=== PATIENT | male | born 1965 | race Caucasian/White ===

== ENCOUNTER 2017-04-21 12:26 | Emergency (ER) | payer BC ==
[2017-04-21] MEDS ORDERED: LIDOCAINE 1%-EPI 1:100000 20 ML MDV ONE (13:03)
[2017-04-21] MEDS ORDERED: TETANUS/DIPHTHERIA/PERTUSSIS 0.5 ML SYRINGE IM ONE ×2 (13:03→13:06)
--- NOTE | 2017-04-21 14:12 | ED Physician Documentation ---
PD HPI LOWER EXT INJURY - Stated complaint Stated Complaint: LEFT LEG LAC - Chief complaint Chief Complaint: Laceration - History obtained from History obtained from: Patient - History of Present Illness PD HPI LOW EXT INJURY LOCATION: Left, Lower leg Type of injury: Laceration Where injury occurred: Home Timing - onset: How many hours ago (1) Associated symptoms: No: Weakness, Numbness Similar symptoms before: Has not had sx before Recently seen: Clinic (Sent here from clinic.) - Additional information Additional information: The patient is a 52-year-old male who was sent to the emergency department from clinic with a laceration in his left anterior tibial region. The patient was lifting a piece of glass that was cracked, and it fell with the broken edge impacting his left anterior tibial region. He presents with 2 parallel lacerations. He denies any other injuries. He is uncertain of his tetanus status. Review of Systems Constitutional: denies: Fever Skin: reports: Laceration (s) Musculoskeletal: denies: Back pain, Joint pain, Extremity swelling Neurologic: denies: Focal weakness, Numbness PD PAST MEDICAL HISTORY - Past Medical History Past Medical History: No Cardiovascular: None Respiratory: None Neuro: None Endocrine/Autoimmune: None - Past Surgical History Past Surgical History: No - Present Medications Home Medications: Ambulatory Orders Medication Instructions Recorded Confirmed No Known Home Medications [No 04/21/17 04/21/17 Known Home Medications] - Allergies Allergies/Adverse Reactions: Allergies Allergy/AdvReac Type Severity Reaction Status Date / Time No Known Drug Allergies Allergy Verified 04/21/17 12:35 - Social History Does the pt smoke?: No Smoking Status: Never smoker Does the pt drink ETOH?: Yes ETOH Use: Beer Does the pt have substance abuse?: No - Immunizations Immunizations are current?: No Immunizations: TDAP >10years/unknown PD ED PE NORMAL - Vitals Vital signs reviewed: Yes (Normal) - General General: Alert and oriented X 3, Well developed/nourished - HEENT HEENT: Atraumatic - Respiratory Respiratory: No respiratory distress - Derm Derm: No rash - Extremities Extremities: No edema, No calf tenderness / cord, Other (There is a 2 cm laceration and a 1.5 cm laceration on the anterior aspect of the left mid tibial region. Exploration of the wound reveals no foreign body. Distal neurovascular is intact.) - Neuro Neuro: Alert and oriented X 3, No motor deficit, No sensory deficit, Normal speech Results - Vitals Vitals: Oxygen O2 Source Room air - Rads (name of study) Left tib/fib Radiology: Prelim report reviewed, EMP read contemporaneously, See rad report ( No appreciable radiopaque foreign body or soft tissue gas identified.) Procedures - Laceration (location) left lower leg Length in cm: 1.5 Wound type: Linear, Into subcut fat Neurovascular status: Sensory intact, Motor intact, Vascular intact Tendon involvement: Tendon intact Anesthesia: Lidocaine 1% with epi Wound Preparation: Hibiclens Skin layer closure: Nylon, Interrupted, Size #-0 - enter number (5), Sutures - enter # (5) Other: Patient tolerated well, No complications, Neurovascular intact, Tetanus booster given Complexity: Simple left pretibial region Length in cm: 2 Wound type: Linear, Into subcut fat, Clean Neurovascular status: Sensory intact, Motor intact, Vascular intact Tendon involvement: Tendon intact Anesthesia: Lidocaine 1% with epi Wound Preparation: Hibiclens Skin layer closure: Nylon, Interrupted, Size #-0 - enter number (5), Sutures - enter # (5) Other: Patient tolerated well, No complications, Neurovascular intact, Dressing applied, Tetanus booster given Complexity: Simple PD MEDICAL DECISION MAKING - ED course Complexity details: reviewed results, re-evaluated patient, considered differential, d/w patient, d/w family ED course: The patient's presentation is significant for 2 linear lacerations on the anterior tibial region of the left leg. No foreign bodies were detected on physical examination of the wounds, or by x-ray examination. After instilling local anesthetic and thoroughly cleaning the wounds, they were repaired with 5- 0 nylon simple sutures. Antibiotic ointment and gauze dressings were applied. Tetanus booster was administered. I discussed with the patient and his family the expected course of healing, timing for suture removal, as well as potentially worrisome signs or symptoms that should prompt reevaluation in the emergency department. Departure - Departure Disposition: 01 Home, Self Care Clinical Impression: Leg laceration Qualifiers: Encounter type: initial encounter Laterality: left Qualified Code(s): S81.812A - Laceration without foreign body, left lower leg, initial encounter Condition: Stable Instructions: ED Laceration Ext Sutr Stap Tape Follow-Up: YURY CURRY MD [Physician No Access] - Comments: Keep the wound clean, and apply antibiotic ointment daily. Keep your left leg elevated as much the time as possible. You can use ibuprofen, up to 800 mg 3 times daily if needed for pain. Followup for suture removal in about 12 days. Return to the emergency department if you develop any sign of infection, or otherwise worsening symptoms. Discharge Date/Time: 04/21/17 14:29
--- NOTE | 2017-04-21 14:13 | XRAY Preliminary Report ---
Exam: XR Tib/Fib LT IMPRESSION: 1. No appreciable radiopaque foreign body or soft tissue gas identified. [facility] SITE ID: [id number]
--- NOTE | 2017-04-21 14:16 | XRAY Report ---
EXAM: LEFT TIBIA/FIBULA RADIOGRAPHY EXAM DATE: 04/21/2017 01:50 PM. CLINICAL HISTORY: Glass cut left pretibial region, ?foreign body. COMPARISON: None. TECHNIQUE: AP and lateral views. FINDINGS: Medial jake in the distal femur and proximal tibia consistent with medial collateral ligament lenin nstruction. Patellofemoral marginal osteophyte formation. Lateral compartment marginal osteophyte for mation. No acute fracture. Ankle mortise intact. No significant left knee joint effusion. 2 punctate rounded calcifications over the mid and lower medial aspect of the left lower leg possibly tiny phleb oliths. Otherwise no evidence of radiopaque foreign body. No obvious soft tissue gas. IMPRESSION: 1. No appreciable radiopaque foreign body or soft tissue gas identified. [facility] Referring Provider Line: [phone] SITE ID: [id number]
[2017-04-21 14:22] VITALS: BP 127/59
== END 2017-04-21 14:29 | disposition home or self-care (01) ==
LOC: ED 12:26
DX: S81.812A Laceration without foreign body, left lower leg, initial encounter (principal); W25.XXXA Contact with sharp glass, initial encounter; Z23 Encounter for immunization
CPT/HCPCS: 12002; 90471; 99283

== ENCOUNTER 2018-10-01 08:14 | Outpatient (CLI) | payer BC ==
[2018-10-01 11:06] LABS: ALBUMIN 4.4 g/dL (3.2-5.5); ALBUMIN/GLOBULIN RATIO 1.6 (1.0-2.2); ALKALINE PHOSPHATASE 56 IU/L (42-121); ALT ALANINE AMINOTRANSFERASE 26 IU/L (10-60); AST ASPARTATE AMINOTRANSFERASE 29 IU/L (10-42); BILIRUBIN,TOTAL 1.9 mg/dL (0.2-1.0); BUN - BLOOD UREA NITROGEN 16 mg/dL (6-20); CALCIUM 8.8 mg/dL (8.5-10.3); CARBON DIOXIDE - CO2 31 mmol/L (21-32); CHLORIDE 102 mmol/L (101-111); CHOL/HDL RATIO 2.6 (<5.0); CHOLESTEROL 187 mg/dL; CREATININE 0.9 mg/dL (0.6-1.2); GFR - MDRD 89 (>89); GLUCOSE 97 mg/dL (70-100); HDL CHOLESTEROL 71 mg/dL; LDL CHOLESTEROL,CALCULATED 100 mg/dL; LDL/HDL RATIO 1.4 (<3.6); SODIUM 136 mmol/L (135-145); TOTAL PROTEIN 7.1 g/dL (6.7-8.2); VLDL CHOLESTEROL 16 mg/dL
== END 2018-10-01 08:15 | disposition home or self-care (01) ==
LOC: LAB.F 08:14
PROVIDERS: ATTEND Internal Medicine
DX: Z00.00 Encounter for general adult medical examination without abnormal findings (principal)
CPT/HCPCS: 36415; 80053; 80061; 83721

== ENCOUNTER 2023-09-27 07:10 | Outpatient (CLI) | payer OTHER ==
[2023-09-27 14:45] LABS: BASOPHILS # (AUTO) 0.1 10^3/uL (0.0-0.1); BASOPHILS % (AUTO) 1.4 %; EOSINOPHILS # (AUTO) 0.2 10^3/uL (0.0-0.7); EOSINOPHILS % (AUTO) 3.7 %; HCT - HEMATOCRIT 43.6 % (42.0-52.0); HGB - HEMOGLOBIN 13.5 g/dL (14.0-18.0); LYMPHOCYTES # (AUTO) 0.8 10^3/uL (1.5-3.5); LYMPHOCYTES % (AUTO) 19.1 %; MEAN CORPUSCULAR VOLUME 96.9 fL (80.0-94.0); MEAN PLATELET VOLUME 9.8 fL (7.4-11.4); MONOCYTES # (AUTO) 0.5 10^3/uL (0.0-1.0); MONOCYTES % (AUTO) 11.7 %; NEUTROPHILS # (AUTO) 2.8 10^3/uL (1.5-6.6); NEUTROPHILS % (AUTO) 63.9 %; PLT - PLATELET COUNT 239 10^3/uL (130-450); RED CELL DISTRIBUTION WIDTH 13.6 % (12.0-15.0); WHITE BLOOD COUNT 4.4 x10^3/uL (4.8-10.8)
[2023-09-27 15:26] LABS: ALBUMIN 4.5 g/dL (3.2-5.5); ALBUMIN/GLOBULIN RATIO 1.7 (1.0-2.2); ALKALINE PHOSPHATASE 56 IU/L (42-121); ALT ALANINE AMINOTRANSFERASE 18 IU/L (10-60); AST ASPARTATE AMINOTRANSFERASE 22 IU/L (10-42); BILIRUBIN,TOTAL 1.2 mg/dL (0.2-1.0); BUN - BLOOD UREA NITROGEN 21 mg/dL (6-20); CALCIUM 9.5 mg/dL (8.5-10.3); CARBON DIOXIDE - CO2 33 mmol/L (21-32); CHLORIDE 103 mmol/L (101-111); CHOL/HDL RATIO 2.9 (<5.0); CHOLESTEROL 240 mg/dL; CREATININE 0.8 mg/dL (0.6-1.3); GFR - MDRD 100 (>89); GLUCOSE 95 mg/dL (74-104); HDL CHOLESTEROL 84 mg/dL; LDL CHOLESTEROL,CALCULATED 126 mg/dL; LDL/HDL RATIO 1.5 (<3.6); POTASSIUM 5.2 mmol/L (3.5-4.5); SODIUM 138 mmol/L (135-145); TOTAL PROTEIN 7.1 g/dL (6.4-8.9); TRIGLYCERIDES 152 mg/dL (48-352); VLDL CHOLESTEROL 30 mg/dL
== END 2023-09-27 07:11 | disposition home or self-care (01) ==
LOC: LAB.S 07:10
PROVIDERS: ATTEND Nurse Practitioner Acute Care
DX: Z13.228 Encounter for screening for other metabolic disorders (principal); Z13.220 Encounter for screening for lipoid disorders; Z12.5 Encounter for screening for malignant neoplasm of prostate; Z13.0 Encounter for screening for diseases of the blood and blood-forming organs and certain disorders involving the immune mechanism
CPT/HCPCS: 36415; 80053; 80061; 83721; 84153; 85025

== ENCOUNTER 2023-10-24 08:38 | Outpatient (CLI) | payer OTHER | END 2023-10-24 08:39 | disposition home or self-care (01) | LOC: LAB.S 08:38 | PROVIDERS: ATTEND Nurse Practitioner Acute Care | DX: E87.5 Hyperkalemia (principal) | CPT/HCPCS: 36415; 84132 ==

== ENCOUNTER 2023-11-27 06:13 | Day surgery (SDC) | payer OTHER ==
[2023-11-27] MEDS ORDERED: LACTATED RINGERS 1,000 ML IV ONE ×2 (06:24→08:18)
--- NOTE | 2023-11-27 07:13 | ANESTHESIA ---
Pre-Anesthesia VS, & Labs - Diagnosis screening - Procedure colonoscopy Vital Signs: Temp Pulse Resp BP Pulse Ox O2 Flow Rate 36 C L 35 L 13 124/65 100 0 11/27/23 06:40 11/27/23 06:40 11/27/23 06:40 11/27/23 06:40 11/27/23 06:40 11/27/23 06:40 Height: 6 ft 2 in Weight (kg): 97.7 kg Body Mass Index: 27.6 BMI Classification: Overweight - NPO Other (3am water) Home Medications and Allergies No Known Home Medications 04/21/17 Allergies/Adverse Reactions: Allergies Allergy/AdvReac Type Severity Reaction Status Date / Time No Known Drug Allergies Allergy Verified 04/21/17 12:35 Anes History & Medical History - Anesthetic History Anesthesia Complications: reports: No previous complications - Medical History Cardiovascular: reports: None Pulmonary: reports: None Gastrointestinal: reports: GERD Urinary: reports: Frequency Musculoskeletal: reports: Osteoarthritis Endocrine/Autoimmune: reports: None Skin: reports: None Smoking Status: Never smoker History of Cancer?: No - Surgical History General: reports: Appendectomy Cardiothoracic: reports: Vascular surgery Orthopedic: reports: Shoulder arthroplasty, Other Exam General: Alert, Oriented x3 Dental: WNL Mouth Opening: Greater than 4 Fingerbreadths Neck Mobility: Normal Mallampati classification: III Thyromental Distance: greater than 6 cm Respiratory: Lungs clear Cardiovascular: Regular rate (sinus shen) Plan Anesthesia Type: Total IV Consent for Procedure(s) Verified and Reviewed: Yes Code Status: Attempt Resuscitation ASA classification: 1-Healthy patient Is this case an emergency?: No
[2023-11-27] MEDS ORDERED: PROPOFOL 500 MG/50 ML 500 MG/50 ML VIAL ONE (07:38)
[2023-11-27] MEDS ORDERED: GLYCOPYRROLATE 1 MG/5 ML VIAL ONE (07:39)
[2023-11-27 08:38] VITALS: O2SAT 100
[2023-11-27 08:48] VITALS: BP 110/80
--- NOTE | 2023-11-27 10:07 | ANESTHESIA POST OP EVALUATION ---
Anesthesia Post Eval - Post Anesthesia Eval Vitals: Last Vital Signs Temp 36 C L 11/27/23 08:35 Pulse 54 L 11/27/23 08:35 Resp 14 11/27/23 08:35 BP 110/80 11/27/23 08:35 Pulse Ox 100 11/27/23 08:35 O2 Flow Rate 0 11/27/23 06:40 CV Function Including HR & BP: Stable Pain Control: Satisfactory Nausea & Vomiting: Negative Mental Status: Baseline Respiratory Status: Airway Patent Hydration Status: Satisfactory Anesthesia Complications: None
== END 2023-11-27 06:14 | disposition home or self-care (01) ==
LOC: SDS 06:13
PROVIDERS: ATTEND Surgery
DX: Z12.11 Encounter for screening for malignant neoplasm of colon (principal); K64.1 Second degree hemorrhoids
CPT/HCPCS: 45378; J7120

== ENCOUNTER 2024-01-05 07:08 | Outpatient (CLI) | payer OTHER ==
[2024-01-05 14:55] LABS: ABSOLUTE RETICS # AUTO 0.047 10^6/uL (0.020-0.110); EOSINOPHILS # (AUTO) 0.2 10^3/uL (0.0-0.7); EOSINOPHILS % (AUTO) 4.2 %; HCT - HEMATOCRIT 42.4 % (42.0-52.0); HGB - HEMOGLOBIN 13.1 g/dL (14.0-18.0); LYMPHOCYTES % (AUTO) 25.3 %; MEAN CORPUSCULAR HEMOGLOBIN 28.8 pg (27.0-31.0); MEAN CORPUSCULAR HGB CONC 30.9 g/dL (32.0-36.0); MEAN CORPUSCULAR VOLUME 93.2 fL (80.0-94.0); MEAN PLATELET VOLUME 10.2 fL (7.4-11.4); MONOCYTES # (AUTO) 0.4 10^3/uL (0.0-1.0); MONOCYTES % (AUTO) 10.7 %; NEUTROPHILS # (AUTO) 2.3 10^3/uL (1.5-6.6); NEUTROPHILS % (AUTO) 58.8 %; PLT - PLATELET COUNT 251 10^3/uL (130-450); RED BLOOD COUNT 4.55 10^6/uL (4.70-6.10); RED CELL DISTRIBUTION WIDTH 14.3 % (12.0-15.0); RETICULOCYTE COUNT % (AUTO) 1.03 % (0.5-2.3); WHITE BLOOD COUNT 3.8 x10^3/uL (4.8-10.8)
[2024-01-05 16:10] LABS: ALBUMIN 4.3 g/dL (3.2-5.5); ALBUMIN/GLOBULIN RATIO 1.7 (1.0-2.2); BILIRUBIN,DIRECT 0.12 mg/dL (0.03-0.18); BILIRUBIN,TOTAL 0.8 mg/dL (0.2-1.0); CALCIUM 9.7 mg/dL (8.5-10.3); CREATININE 0.8 mg/dL (0.6-1.3); POTASSIUM 5.5 mmol/L (3.5-4.5); TOTAL PROTEIN 6.8 g/dL (6.4-8.9)
== END 2024-01-05 07:09 | disposition home or self-care (01) ==
LOC: LAB.S 07:08
PROVIDERS: ATTEND Nurse Practitioner Acute Care
DX: E80.6 Other disorders of bilirubin metabolism (principal); Z13.228 Encounter for screening for other metabolic disorders; D53.9 Nutritional anemia, unspecified; F10.10 Alcohol abuse, uncomplicated; E87.5 Hyperkalemia
CPT/HCPCS: 36415; 80053; 82248; 82607; 82728; 82746; 83540; 83615; 84425; 84466; 85025; 85045